=== PATIENT | male | born 1945 | race Caucasian/White ===

== ENCOUNTER 2018-01-09 08:32 | Emergency (ER) | payer MEDICARE, OTHER ==
[~2018-01-09] VITALS: Ht 167.6 cm; Wt 90.0 kg
[2018-01-09 10:31] LABS: CHLORIDE 104 mEq/L (98-107)
[2018-01-09 10:34] LABS: BASOPHILS % 0.5 % (0.0-2.0); EOSINOPHILS % 1.5 % (0.0-5.0); HEMATOCRIT. 43.1 % (42.0-52.0); HEMOGLOBIN. 14.1 g/dL (14.0-18.0); LYMPHOCYTES % 28.9 % (20.0-50.0); MEAN CORPUSCULAR HEMOGLOBIN 29.4 pg (28.0-32.0); MEAN CORPUSCULAR VOLUME 89.4 fL (80.0-94.0); MEAN PLATELET VOLUME 7.5 fl (7.4-10.4); MONOCYTES % 8.7 % (2.0-8.0); NEUTROPHILS % 60.4 % (40.0-76.0); PLATELET 173 x1000/uL (130-400); RED BLOOD CELL COUNT 4.82 mill/uL (4.7-6.1); RED CELL DISTRIBUTION WIDTH 16.9 % (11.6-14.6)
[2018-01-09 10:55] LABS: CLARITY URINE CLEAR (CLEAR); COLOR URINE YELLOW (YELLOW); KETONES URINE NEGATIVE (NEGATIVE); LEUKOCYTE ESTERASE URINE 1+ (NEGATIVE); NITRITE URINE POSITIVE (NEGATIVE); OCCULT BLOOD URINE NEGATIVE (NEGATIVE); PROTEIN URINE NEGATIVE (NEGATIVE); SPECIFIC GRAVITY URINE 1.006 (1.005-1.030); UROBILINOGEN URINE 0.2 E.U./dL (0.2-1.0)
[2018-01-09 13:01] VITALS: BP 130/82
== END 2018-01-09 13:01 | disposition home or self-care (01) ==
LOC: ER 09:08
DX: M48.02 Spinal stenosis, cervical region (principal); R53.1 Weakness; R51 Headache; R42 Dizziness and giddiness; Z91.81 History of falling
CPT/HCPCS: 36415; 70450; 72125; 80053; 81003; 85025; 93005; 99285

== ENCOUNTER → 2018-01-28 | Outpatient (CLI) | payer MEDICARE, MEDICAID | END | disposition home or self-care (01) | LOC: RAD 11:19 | PROVIDERS: ATTEND Neurological Surgery | DX: Z01.818 Encounter for other preprocedural examination (principal); R07.89 Other chest pain | CPT/HCPCS: 71045 ==

== ENCOUNTER 2018-02-09 14:00 | Inpatient (IN) | payer MEDICARE, MEDICAID ==
[~2018-02-09] VITALS: Ht 167.6 cm; Wt 90.7 kg
[2018-02-09 14:00] VITALS: BP 113/55
[~2018-02-09 14:00] MED LIST: LEVO50TA8 PO; TRAM50TA3 PO
[2018-02-09 15:00] VITALS: BP 115/76
[2018-02-09] MEDS ORDERED: ONDANSETRON HCL 4MG/2ML VIAL IV PRN (15:45)
[2018-02-09] MEDS ORDERED: MORPHINE SULFATE 4 MG/ML CPJ (NOT FOR IM USE) IV PRN (15:45)
[2018-02-09] MEDS ORDERED: CLONIDINE 0.1MG TABLET PO PRN (15:45)
[2018-02-09] MEDS ORDERED: HYDROCODONE/ACETAMINOPHEN 10/325MG TABLET PO PRN (15:45)
[2018-02-09] MEDS ORDERED: BISACODYL 5MG TABLET PO PRN (18:00)
[2018-02-09] MEDS: DOCUSATE SODIUM 100MG CAPSULE PO SCH (18:00)
[2018-02-09 20:00] VITALS: BP 108/74
[2018-02-09] MEDS: NITROFURANTOIN 100MG M/M CAPSULE PO SCH (23:11)
[2018-02-10] MEDS: IPRATROPIUM/ALBUTEROL 0.5-3(2.5)MG/3ML NEB HHN PRN ×4 (01:50→22:15)
[2018-02-10] MEDS: PANTOPRAZOLE 40MG DR TABLET PO SCH (06:02)
[2018-02-10] MEDS: LEVOTHYROXINE SODIUM 50MCG TABLET PO SCH (06:02)
[2018-02-10 06:41] LABS: BASOPHILS % 0.1 % (0.0-2.0); EOSINOPHILS % 0.8 % (0.0-5.0); HEMATOCRIT. 43.1 % (42.0-52.0); HEMOGLOBIN. 14.5 g/dL (14.0-18.0); LYMPHOCYTES % 24.5 % (20.0-50.0); MEAN CORPUSCULAR HEMOGLOBIN 30.2 pg (28.0-32.0); MEAN CORPUSCULAR VOLUME 89.8 fL (80.0-94.0); MEAN PLATELET VOLUME 7.9 fl (7.4-10.4); MONOCYTES % 7.3 % (2.0-8.0); NEUTROPHILS % 67.3 % (40.0-76.0); PLATELET 234 x1000/uL (130-400); RED CELL DISTRIBUTION WIDTH 15.6 % (11.6-14.6)
[2018-02-10 08:00] VITALS: BP 126/69
[2018-02-10 09:57] LABS: CHLORIDE 102 mEq/L (98-107)
[2018-02-10] MEDS: NITROFURANTOIN 100MG M/M CAPSULE PO SCH ×2 (10:10→21:45)
[2018-02-10] MEDS: DOCUSATE SODIUM 100MG CAPSULE PO SCH ×2 (10:11→16:44)
[2018-02-10] MEDS: AMLODIPINE 5MG TABLET PO SCH (10:11)
[2018-02-10] MEDS: ACETAMINOPHEN 325MG TABLET PO PRN (14:50)
[2018-02-10 20:00] VITALS: BP 113/76
[2018-02-11] MEDS: LEVOTHYROXINE SODIUM 50MCG TABLET PO SCH (05:57)
[2018-02-11] MEDS: PANTOPRAZOLE 40MG DR TABLET PO SCH (05:57)
[2018-02-11] MEDS: DOCUSATE SODIUM 100MG CAPSULE PO SCH ×2 (09:00→17:00)
[2018-02-11] MEDS: NITROFURANTOIN 100MG M/M CAPSULE PO SCH ×2 (09:27→22:45)
[2018-02-11] MEDS: AMLODIPINE 5MG TABLET PO SCH (09:27)
[2018-02-11 13:11] LABS: BASOPHILS % 0.4 % (0.0-2.0); EOSINOPHILS % 1.7 % (0.0-5.0); HEMATOCRIT. 40.7 % (42.0-52.0); HEMOGLOBIN. 13.6 g/dL (14.0-18.0); LYMPHOCYTES % 17.9 % (20.0-50.0); MEAN CORPUSCULAR HEMOGLOBIN 29.8 pg (28.0-32.0); MEAN CORPUSCULAR VOLUME 88.9 fL (80.0-94.0); MEAN PLATELET VOLUME 7.8 fl (7.4-10.4); MONOCYTES % 9.7 % (2.0-8.0); NEUTROPHILS % 70.3 % (40.0-76.0); PLATELET 268 x1000/uL (130-400); RED BLOOD CELL COUNT 4.58 mill/uL (4.7-6.1); RED CELL DISTRIBUTION WIDTH 15.7 % (11.6-14.6)
[2018-02-11 13:35] LABS: CHLORIDE 101 mEq/L (98-107)
[2018-02-11] MEDS ORDERED: LEVOTHYROXINE SODIUM 50MCG TABLET PO SCH (16:00)
[2018-02-11 20:00] VITALS: BP 124/80
[2018-02-12] MEDS: IPRATROPIUM/ALBUTEROL 0.5-3(2.5)MG/3ML NEB HHN PRN (00:10)
[2018-02-12] MEDS: LEVOTHYROXINE SODIUM 50MCG TABLET PO SCH (06:23)
[2018-02-12 08:00] VITALS: BP 123/84
[2018-02-12] MEDS: FAMOTIDINE 20MG TABLET PO SCH ×2 (08:39→22:26)
[2018-02-12] MEDS: DOCUSATE SODIUM 100MG CAPSULE PO SCH ×2 (08:39→18:00)
[2018-02-12] MEDS: NITROFURANTOIN 100MG M/M CAPSULE PO SCH ×2 (08:39→22:26)
[2018-02-12] MEDS: AMLODIPINE 5MG TABLET PO SCH (08:44)
[2018-02-12 12:00] VITALS: BP 122/82
[2018-02-12 16:00] VITALS: BP 119/75
[2018-02-12 20:00] VITALS: BP 108/71
[2018-02-13] MEDS: LEVOTHYROXINE SODIUM 50MCG TABLET PO SCH (06:00)
[2018-02-13] MEDS: ACETAMINOPHEN 325MG TABLET PO PRN (06:57)
[2018-02-13 08:00] VITALS: BP 120/70
[2018-02-13] MEDS: NITROFURANTOIN 100MG M/M CAPSULE PO SCH ×2 (08:37→21:29)
[2018-02-13] MEDS: FAMOTIDINE 20MG TABLET PO SCH ×2 (08:37→21:31)
[2018-02-13] MEDS: AMLODIPINE 5MG TABLET PO SCH (08:37)
[2018-02-13] MEDS: DOCUSATE SODIUM 100MG CAPSULE PO SCH ×2 (08:39→16:26)
[2018-02-14] MEDS: LEVOTHYROXINE SODIUM 50MCG TABLET PO SCH (06:26)
[2018-02-14] MEDS: DOCUSATE SODIUM 100MG CAPSULE PO SCH ×2 (09:10→18:01)
[2018-02-14] MEDS: FAMOTIDINE 20MG TABLET PO SCH ×2 (09:10→21:20)
[2018-02-14] MEDS: NITROFURANTOIN 100MG M/M CAPSULE PO SCH ×2 (09:10→21:20)
[2018-02-14] MEDS: AMLODIPINE 5MG TABLET PO SCH (09:10)
[2018-02-14 20:00] VITALS: BP 103/65
[2018-02-15] MEDS: LEVOTHYROXINE SODIUM 50MCG TABLET PO SCH (06:28)
[2018-02-15 08:00] VITALS: BP 122/76
[2018-02-15] MEDS: NITROFURANTOIN 100MG M/M CAPSULE PO SCH ×2 (08:41→21:00)
[2018-02-15] MEDS: DOCUSATE SODIUM 100MG CAPSULE PO SCH ×2 (08:41→17:34)
[2018-02-15] MEDS: AMLODIPINE 5MG TABLET PO SCH (08:41)
[2018-02-15] MEDS: FAMOTIDINE 20MG TABLET PO SCH ×2 (08:41→21:00)
[2018-02-15] MEDS ORDERED: SENNOSIDES/DOCUSATE SOD 8.6/50MG TABLET PO PRN (12:15)
[2018-02-15] MEDS ORDERED: HYDROCODONE/ACETAMINOPHEN 10/325MG TABLET PO PRN (19:45)
[2018-02-15 20:00] VITALS: BP 112/76
[2018-02-16] MEDS: LEVOTHYROXINE SODIUM 50MCG TABLET PO SCH (06:20)
[2018-02-16 08:00] VITALS: BP 123/80
[2018-02-16] MEDS: DOCUSATE SODIUM 100MG CAPSULE PO SCH ×2 (08:37→17:34)
[2018-02-16] MEDS: FAMOTIDINE 20MG TABLET PO SCH ×2 (08:37→21:47)
[2018-02-16] MEDS: AMLODIPINE 5MG TABLET PO SCH (08:37)
[2018-02-16 09:10] LABS: BASOPHILS % 0.5 % (0.0-2.0); EOSINOPHILS % 2.1 % (0.0-5.0); HEMATOCRIT. 39.7 % (42.0-52.0); HEMOGLOBIN. 13.3 g/dL (14.0-18.0); LYMPHOCYTES % 24.8 % (20.0-50.0); MEAN CORPUSCULAR HEMOGLOBIN 30.1 pg (28.0-32.0); MEAN CORPUSCULAR VOLUME 89.5 fL (80.0-94.0); MEAN PLATELET VOLUME 7.2 fl (7.4-10.4); NEUTROPHILS % 65.6 % (40.0-76.0); PLATELET 259 x1000/uL (130-400); RED BLOOD CELL COUNT 4.43 mill/uL (4.7-6.1); RED CELL DISTRIBUTION WIDTH 15.1 % (11.6-14.6)
[2018-02-16 20:00] VITALS: BP 112/69
[2018-02-17] MEDS: LEVOTHYROXINE SODIUM 50MCG TABLET PO SCH (06:08)
[2018-02-17 07:12] LABS: CHLORIDE 103 mEq/L (98-107)
[2018-02-17 07:17] LABS: BASOPHILS % 0.3 % (0.0-2.0); EOSINOPHILS % 2.1 % (0.0-5.0); HEMATOCRIT. 40.9 % (42.0-52.0); HEMOGLOBIN. 13.5 g/dL (14.0-18.0); LYMPHOCYTES % 26.4 % (20.0-50.0); MEAN CORPUSCULAR HEMOGLOBIN 29.6 pg (28.0-32.0); MEAN CORPUSCULAR VOLUME 89.7 fL (80.0-94.0); MEAN PLATELET VOLUME 7.6 fl (7.4-10.4); MONOCYTES % 6.1 % (2.0-8.0); NEUTROPHILS % 65.1 % (40.0-76.0); PLATELET 266 x1000/uL (130-400); RED BLOOD CELL COUNT 4.56 mill/uL (4.7-6.1); RED CELL DISTRIBUTION WIDTH 15.2 % (11.6-14.6)
[2018-02-17 08:00] VITALS: BP 113/81
[2018-02-17] MEDS: DOCUSATE SODIUM 100MG CAPSULE PO SCH ×2 (08:18→16:24)
[2018-02-17] MEDS: FAMOTIDINE 20MG TABLET PO SCH ×2 (08:18→21:49)
[2018-02-17] MEDS: AMLODIPINE 5MG TABLET PO SCH (08:19)
[2018-02-17 20:00] VITALS: BP 114/70
[2018-02-18] MEDS: LEVOTHYROXINE SODIUM 50MCG TABLET PO SCH (06:09)
[2018-02-18 07:19] LABS: CHLORIDE 102 mEq/L (98-107)
[2018-02-18 07:27] LABS: BASOPHILS % 0.3 % (0.0-2.0); EOSINOPHILS % 2.1 % (0.0-5.0); HEMATOCRIT. 40.5 % (42.0-52.0); HEMOGLOBIN. 13.4 g/dL (14.0-18.0); LYMPHOCYTES % 26.5 % (20.0-50.0); MEAN CORPUSCULAR HEMOGLOBIN 29.9 pg (28.0-32.0); MEAN CORPUSCULAR VOLUME 90.1 fL (80.0-94.0); MEAN PLATELET VOLUME 7.3 fl (7.4-10.4); MONOCYTES % 5.7 % (2.0-8.0); NEUTROPHILS % 65.4 % (40.0-76.0); PLATELET 268 x1000/uL (130-400); RED BLOOD CELL COUNT 4.49 mill/uL (4.7-6.1); RED CELL DISTRIBUTION WIDTH 15.6 % (11.6-14.6)
[2018-02-18 08:32] VITALS: BP 126/79
[2018-02-18] MEDS: FAMOTIDINE 20MG TABLET PO SCH ×2 (09:07→21:05)
[2018-02-18] MEDS: AMLODIPINE 5MG TABLET PO SCH (09:08)
[2018-02-18] MEDS: DOCUSATE SODIUM 100MG CAPSULE PO SCH ×2 (09:08→18:25)
[2018-02-18 20:00] VITALS: BP 116/80
[2018-02-19] MEDS: LEVOTHYROXINE SODIUM 50MCG TABLET PO SCH (06:12)
[2018-02-19 08:00] VITALS: BP 115/83
[2018-02-19] MEDS: FAMOTIDINE 20MG TABLET PO SCH ×2 (09:29→22:14)
[2018-02-19] MEDS: DOCUSATE SODIUM 100MG CAPSULE PO SCH ×2 (09:29→16:24)
[2018-02-19] MEDS: AMLODIPINE 5MG TABLET PO SCH (09:29)
[2018-02-19 20:00] VITALS: BP 128/71
[2018-02-20] MEDS: LEVOTHYROXINE SODIUM 50MCG TABLET PO SCH (06:22)
[2018-02-20 08:00] VITALS: BP 120/78
[2018-02-20] MEDS: AMLODIPINE 5MG TABLET PO SCH (08:16)
[2018-02-20] MEDS: DOCUSATE SODIUM 100MG CAPSULE PO SCH ×2 (08:16→17:29)
[2018-02-20] MEDS: FAMOTIDINE 20MG TABLET PO SCH ×2 (08:16→20:59)
[2018-02-20 08:28] LABS: BASOPHILS % 0.3 % (0.0-2.0); EOSINOPHILS % 1.7 % (0.0-5.0); HEMATOCRIT. 40.8 % (42.0-52.0); HEMOGLOBIN. 13.5 g/dL (14.0-18.0); LYMPHOCYTES % 31.2 % (20.0-50.0); MEAN CORPUSCULAR HEMOGLOBIN 29.8 pg (28.0-32.0); MEAN CORPUSCULAR VOLUME 90.2 fL (80.0-94.0); MEAN PLATELET VOLUME 7.3 fl (7.4-10.4); MONOCYTES % 6.3 % (2.0-8.0); NEUTROPHILS % 60.5 % (40.0-76.0); PLATELET 285 x1000/uL (130-400); RED BLOOD CELL COUNT 4.52 mill/uL (4.7-6.1); RED CELL DISTRIBUTION WIDTH 15.3 % (11.6-14.6)
[2018-02-20] MEDS ORDERED: HYDROCODONE/ACETAMINOPHEN 10/325MG TABLET PO PRN (19:30)
[2018-02-20 20:00] VITALS: BP 117/77
[2018-02-21] MEDS: LEVOTHYROXINE SODIUM 50MCG TABLET PO SCH (06:23)
[2018-02-21 07:09] LABS: BASOPHILS % 0.4 % (0.0-2.0); EOSINOPHILS % 1.9 % (0.0-5.0); HEMATOCRIT. 39.1 % (42.0-52.0); HEMOGLOBIN. 13.1 g/dL (14.0-18.0); LYMPHOCYTES % 31.4 % (20.0-50.0); MEAN CORPUSCULAR HEMOGLOBIN 29.9 pg (28.0-32.0); MEAN CORPUSCULAR VOLUME 89.5 fL (80.0-94.0); MEAN PLATELET VOLUME 7.3 fl (7.4-10.4); MONOCYTES % 7.7 % (2.0-8.0); NEUTROPHILS % 58.6 % (40.0-76.0); PLATELET 249 x1000/uL (130-400); RED BLOOD CELL COUNT 4.37 mill/uL (4.7-6.1); RED CELL DISTRIBUTION WIDTH 15.4 % (11.6-14.6)
[2018-02-21 08:00] VITALS: BP 127/83
[2018-02-21] MEDS: DOCUSATE SODIUM 100MG CAPSULE PO SCH ×2 (08:36→16:57)
[2018-02-21] MEDS: FAMOTIDINE 20MG TABLET PO SCH ×2 (08:36→21:26)
[2018-02-21] MEDS: AMLODIPINE 5MG TABLET PO SCH (08:37)
[2018-02-21 09:03] LABS: CHLORIDE 102 mEq/L (98-107)
[2018-02-22] MEDS: LEVOTHYROXINE SODIUM 50MCG TABLET PO SCH (06:12)
[2018-02-22 06:26] LABS: BASOPHILS % 0.5 % (0.0-2.0); EOSINOPHILS % 2.1 % (0.0-5.0); HEMATOCRIT. 39.9 % (42.0-52.0); HEMOGLOBIN. 13.2 g/dL (14.0-18.0); LYMPHOCYTES % 29.1 % (20.0-50.0); MEAN CORPUSCULAR HEMOGLOBIN 29.9 pg (28.0-32.0); MEAN CORPUSCULAR VOLUME 90.2 fL (80.0-94.0); MEAN PLATELET VOLUME 7.3 fl (7.4-10.4); MONOCYTES % 7.6 % (2.0-8.0); NEUTROPHILS % 60.7 % (40.0-76.0); PLATELET 237 x1000/uL (130-400); RED BLOOD CELL COUNT 4.43 mill/uL (4.7-6.1); RED CELL DISTRIBUTION WIDTH 15.2 % (11.6-14.6)
[2018-02-22 06:44] LABS: CHLORIDE 103 mEq/L (98-107)
[2018-02-22] MEDS: AMLODIPINE 5MG TABLET PO SCH (08:35)
[2018-02-22] MEDS: FAMOTIDINE 20MG TABLET PO SCH ×2 (08:35→21:25)
[2018-02-22] MEDS: DOCUSATE SODIUM 100MG CAPSULE PO SCH ×2 (08:35→17:12)
[2018-02-22 20:00] VITALS: BP 143/62
[2018-02-23] MEDS: LEVOTHYROXINE SODIUM 50MCG TABLET PO SCH (06:31)
[2018-02-23 08:09] VITALS: BP 131/78
[2018-02-23] MEDS: DOCUSATE SODIUM 100MG CAPSULE PO SCH (08:42)
[2018-02-23] MEDS: FAMOTIDINE 20MG TABLET PO SCH (08:42)
[2018-02-23] MEDS: AMLODIPINE 5MG TABLET PO SCH (08:42)
[2018-02-23 11:34] VITALS: BP 131/78
== END 2018-02-23 14:30 | disposition home or self-care (01) | DRG 551 ==
PROVIDERS: ADMIT Psychiatry & Neurology Neurology; ATTEND Internal Medicine
DX: M48.02 Spinal stenosis, cervical region (principal); G82.50 Quadriplegia, unspecified; G95.9 Disease of spinal cord, unspecified; N39.0 Urinary tract infection, site not specified; R26.9 Unspecified abnormalities of gait and mobility; E03.9 Hypothyroidism, unspecified; I10 Essential (primary) hypertension; G89.29 Other chronic pain; R20.2 Paresthesia of skin; R53.1 Weakness; N40.0 Benign prostatic hyperplasia without lower urinary tract symptoms; B95.2 Enterococcus as the cause of diseases classified elsewhere; E87.6 Hypokalemia; M79.89 Other specified soft tissue disorders; M19.90 Unspecified osteoarthritis, unspecified site; Z87.440 Personal history of urinary (tract) infections; Z98.42 Cataract extraction status, left eye; Z98.41 Cataract extraction status, right eye
CPT/HCPCS: 36415; 80048; 80053; 85025; 87086; 92523; 92610; 93970; 94640; 97110; 97112; 97116; 97162; 97167; 97530; 97535; A6261; J7620; L0172

== ENCOUNTER 2018-09-01 06:04 | Day surgery (SDC) | payer MEDICARE, OTHER ==
[~2018-09-01] VITALS: Ht 163.8 cm; Wt 90.7 kg
[~2018-09-01 06:04] MED LIST changes: -TRAM50TA3 PO
[2018-09-01] MEDS ORDERED: MIDAZOLAM HCL 2 MG/2 ML VIAL ONE (06:26)
[2018-09-01] MEDS ORDERED: PROPOFOL 200MG/20ML VIAL IV ONE (06:26)
[2018-09-01] MEDS ORDERED: FENTANYL CITRATE/PF 50MCG/ML 2ML VIAL ONE (06:26)
[2018-09-01] MEDS ORDERED: CEFAZOLIN SODIUM 1000MG/VIAL ONE ×2 (06:27→09:29)
[2018-09-01] MEDS ORDERED: LIDOCAINE HCL/PF 1% 10 MG/ML 5ML VIAL ONE (06:28)
[2018-09-01] MEDS ORDERED: ONDANSETRON HCL 4MG/2ML INJ ONE ×2 (06:31→09:29)
[2018-09-01] MEDS ORDERED: LACTATED RINGERS 1,000 ML IV SCH (06:40)
[2018-09-01] MEDS ORDERED: CIPR-213 PO (07:22)
[2018-09-01] MEDS ORDERED: SKIN ADHESIVE 0.7 GM EA TOP ONE ×2 (08:01→10:10)
[2018-09-01] MEDS ORDERED: BUPIVACAINE HCL 0.5% (5MG/ML) 50ML ONE (08:01)
[2018-09-01] MEDS ORDERED: EPHEDRINE SULFATE 50MG/ML VIAL ONE (09:29)
[2018-09-01] MEDS ORDERED: GLYCOPYRROLATE 0.2 MG/ML 2ML VIAL ONE (09:35)
[2018-09-01] MEDS ORDERED: LABETALOL HCL 5MG/ML VIAL 20ML IV ONE (10:24)
[2018-09-01] MEDS ORDERED: HYDROMORPHONE HCL/PF 2MG/ML CPJ IV PRN (10:30)
[2018-09-01] MEDS ORDERED: ONDANSETRON HCL 4MG/2ML INJ IV PRN (10:30)
== END 2018-09-01 12:05 | disposition home or self-care (01) ==
LOC: OR 06:04
PROVIDERS: ATTEND Surgery
DX: K42.9 Umbilical hernia without obstruction or gangrene (principal); L91.8 Other hypertrophic disorders of the skin; Z98.890 Other specified postprocedural states; E03.9 Hypothyroidism, unspecified; E66.01 Morbid (severe) obesity due to excess calories
CPT/HCPCS: 11403; 49585; 88304; C1781; G0168; J0690; J2250; J2405; J2704; J3010; J3490